=== PATIENT | male | born 1975 | race Caucasian/White ===

== ENCOUNTER 2017-11-18 04:30 | Emergency (ER) | payer MEDICAID ==
[2017-11-18 05:29] LABS: ADD MAN DIFF? NO
[2017-11-18 05:45] LABS: BASOPHILS % 0.5 % (0.0-2.0); EOSINOPHILS # 0.4 10^3/ul (0.0-0.5); HEMATOCRIT 43.4 % (42.0-52.0); HEMOGLOBIN 14.9 g/dl (14.0-18.0); LYMPHOCYTES # 2.2 10^3/ul (0.8-2.9); LYMPHOCYTES % 25.7 % (15.0-51.0); MEAN CORPUSCULAR HEMOGLOBIN 30.3 pg (29.0-33.0); MEAN CORPUSCULAR HGB CONC 34.3 g/dl (32.0-37.0); MEAN CORPUSCULAR VOLUME 88.4 fl (82.0-101.0); MEAN PLATELET VOLUME 9.9 fl (7.4-10.4); MONOCYTE # 0.7 10^3/ul (0.3-0.9); MONOCYTES % 7.9 % (0.0-11.0); NEUTROPHIL # 5.2 10^3/ul (1.6-7.5); NEUTROPHILS % 60.3 % (39.0-77.0); PLATELET COUNT 202 10^3/UL (140-415); RED BLOOD COUNT 4.91 10^6/ul (4.70-6.10); RED CELL DISTRIBUTION WIDTH 13.2 % (11.5-14.5)
[2017-11-18 05:45] LABS: WHITE BLOOD COUNT 8.5 10^3/ul (4.8-10.8)
[2017-11-18 05:56] LABS: ALANINE AMINOTRANSFERASE 135 IU/L (13-69); ALBUMIN 4.2 g/dl (3.3-4.9); ALBUMIN/GLOBULIN RATIO 1.05; ALKALINE PHOSPHATASE 195 IU/L (42-121); ANION GAP 12 (8-16); ASPARTATE AMINO TRANSFERASE 76 IU/L (15-46); BILIRUBIN,INDIRECT 0.2 mg/dl (0-1.1); BILIRUBIN,TOTAL 0.2 mg/dl (0.2-1.3); BLOOD UREA NITROGEN 8 mg/dl (7-20); CALCIUM 8.7 mg/dl (8.4-10.2); CARBON DIOXIDE 25 mmol/L (21-31); CHLORIDE 108 mmol/L (97-110); CREATININE 0.64 mg/dl (0.61-1.24); GLUCOSE 147 mg/dl (70-220); POTASSIUM 4.1 mmol/L (3.5-5.1); SODIUM 141 mmol/L (135-144); TOTAL PROTEIN 8.2 g/dl (6.1-8.1)
[2017-11-18 06:08] LABS: B-TYPE NATRIURETIC PEPTIDE 23 PG/ML (0-125)
[2017-11-18 06:09] LABS: TROPONIN-I < 0.012 ng/ml (0.000-0.120)
[2017-11-18] MEDS: BELLADONNA/PHENOBARBITAL TAB PO (06:34)
[2017-11-18] MEDS: KETOROLAC 15 MG INJ IV (06:34)
[2017-11-18] MEDS: LIDOCAINE/MYLANTA 40 ML BTL PO (06:34)
[2017-11-18] MEDS: ONDANSETRON 4 MG INJ IV (06:34)
[2017-11-18] MEDS: LORAZEPAM 0.5 MG TAB PO (06:34)
[2017-11-18] MEDS: FAMOTIDINE 20 MG TAB PO (06:34)
[2017-11-18] MEDS: SOD CHLORIDE 0.9% 1,000 ML IV (06:35)
== END 2017-11-18 08:00 | disposition home or self-care (01) ==
LOC: E/R 04:30
DX: K29.20 Alcoholic gastritis without bleeding (principal); R74.0 Nonspecific elevation of levels of transaminase and lactic acid dehydrogenase [LDH]
CPT/HCPCS: 36415; 71045; 80053; 83880; 84484; 85025; 93005; 96374; 96375; 99285-25

== ENCOUNTER 2018-06-16 10:09 | Observation (INO) | payer MEDICAID ==
[2018-06-16 12:07] LABS: ADD MAN DIFF? NO
[2018-06-16] MEDS: KETOROLAC 30 MG INJ IV (12:08)
[2018-06-16 12:16] LABS: BASOPHIL # 0.1 10^3/ul (0.0-0.1); BASOPHILS % 0.6 % (0.0-2.0); EOSINOPHILS # 0.3 10^3/ul (0.0-0.5); EOSINOPHILS % 3.4 % (0.0-7.0); HEMOGLOBIN 15.7 g/dl (14.0-18.0); LYMPHOCYTES # 2.6 10^3/ul (0.8-2.9); LYMPHOCYTES % 32.2 % (15.0-51.0); MEAN CORPUSCULAR HEMOGLOBIN 29.8 pg (29.0-33.0); MEAN CORPUSCULAR HGB CONC 33.4 g/dl (32.0-37.0); MEAN CORPUSCULAR VOLUME 89.2 fl (82.0-101.0); MEAN PLATELET VOLUME 9.6 fl (7.4-10.4); MONOCYTE # 0.6 10^3/ul (0.3-0.9); MONOCYTES % 7.7 % (0.0-11.0); NEUTROPHIL # 4.4 10^3/ul (1.6-7.5); NEUTROPHILS % 55.8 % (39.0-77.0); PLATELET COUNT 216 10^3/UL (140-415); RED BLOOD COUNT 5.27 10^6/ul (4.70-6.10); RED CELL DISTRIBUTION WIDTH 13.3 % (11.5-14.5)
[2018-06-16 12:16] LABS: WHITE BLOOD COUNT 7.9 10^3/ul (4.8-10.8)
[2018-06-16 12:37] LABS: ANION GAP 13 (5-13); BLOOD UREA NITROGEN 12 mg/dl (7-20); CARBON DIOXIDE 27 mmol/L (21-31); CHLORIDE 102 mmol/L (97-110); Estimated GFR > 60 mL/min (>60); GLUCOSE 95 mg/dl (70-220); POTASSIUM 4.2 mmol/L (3.5-5.1); SODIUM 142 mmol/L (135-144)
[2018-06-16 12:46] LABS: D-DIMER 371.87 ng/ml (<460)
[2018-06-16 12:50] LABS: TROPONIN-I < 0.012 ng/ml (0.000-0.120)
[2018-06-16] MEDS: NITROGLYCERIN 2% 1 GM OINT PKT TD (14:21)
[2018-06-16] MEDS: ASPIRIN 81 MG TAB PO (14:21)
[2018-06-16] MEDS: PIPER-TAZO 3.375 GM IV (PMX) 100 ML IVPB (14:53)
[2018-06-16] MEDS: VANCOMYCIN 1 GM (PMX) 250 ML IVPB (15:29)
[2018-06-16] MEDS ORDERED: MAGNESIUM HYDROXIDE 30ML CUP PO (16:00)
[2018-06-16] MEDS ORDERED: ALBUTEROL/IPRATROPIUM (NEB) 3 ML AMP HHN (16:00)
[2018-06-16] MEDS ORDERED: ONDANSETRON 4 MG INJ IV (16:00)
[2018-06-16] MEDS ORDERED: HYDROCODONE/APAP (5/325) TAB PO (16:00)
[2018-06-16] MEDS ORDERED: DOCUSATE SODIUM 100 MG CAP PO (16:00)
[2018-06-16] MEDS ORDERED: hydrALAzine 20 MG INJ IV (16:00)
[2018-06-16] MEDS ORDERED: LORAZEPAM 2 MG INJ IV (16:00)
[2018-06-16] MEDS ORDERED: NITROGLYCERIN (SL) 0.4 MG TAB SL (16:00)
[2018-06-16] MEDS ORDERED: ACETAMINOPHEN 325 MG TAB PO (16:00)
[2018-06-16] MEDS ORDERED: NACL 0.9% 3 ML SYG IV (16:00)
[2018-06-16] MEDS ORDERED: morphine SULFATE/PF (2 MG/2 ML) SYG IV (16:00)
[2018-06-16] MEDS: SOD CHLORIDE 0.45% 1,000 ML IV (17:08)
[2018-06-16 17:29] LABS: CREATINE KINASE 88 IU/L (23-200)
[2018-06-16 17:41] LABS: CK INDEX 1.9; CK-MB 1.63 ng/ml (0.0-2.4); TROPONIN-I < 0.012 ng/ml (0.000-0.120)
[2018-06-16 17:46] LABS: ETHANOL < 10.0 mg/dl (0-0)
[2018-06-16 17:47] LABS: FREE T4 (FREE THYROXINE) 1.38 ng/dl (0.64-1.79)
[2018-06-16 20:05] LABS: CREATINE KINASE 84 IU/L (23-200)
[2018-06-16 20:16] LABS: CK INDEX 1.6; CK-MB 1.33 ng/ml (0.0-2.4); TROPONIN-I < 0.012 ng/ml (0.000-0.120)
[2018-06-16] MEDS: HEPARIN 5,000 UNIT/1 ML VIAL SC (22:18)
[2018-06-17 01:09] LABS: CREATINE KINASE 83 IU/L (23-200)
[2018-06-17 01:22] LABS: CK INDEX 1.8; CK-MB 1.49 ng/ml (0.0-2.4); TROPONIN-I < 0.012 ng/ml (0.000-0.120)
[2018-06-17] MEDS: SOD CHLORIDE 0.45% 1,000 ML IV (03:18)
[2018-06-17 06:10] LABS: ADD MAN DIFF? NO
[2018-06-17 06:12] LABS: BASOPHILS % 0.4 % (0.0-2.0); EOSINOPHILS # 0.4 10^3/ul (0.0-0.5); HEMATOCRIT 41.8 % (42.0-52.0); HEMOGLOBIN 14.3 g/dl (14.0-18.0); LYMPHOCYTES # 2.3 10^3/ul (0.8-2.9); LYMPHOCYTES % 32.4 % (15.0-51.0); MEAN CORPUSCULAR HEMOGLOBIN 30.5 pg (29.0-33.0); MEAN CORPUSCULAR HGB CONC 34.2 g/dl (32.0-37.0); MEAN CORPUSCULAR VOLUME 89.1 fl (82.0-101.0); MEAN PLATELET VOLUME 10.1 fl (7.4-10.4); MONOCYTE # 0.5 10^3/ul (0.3-0.9); NEUTROPHIL # 3.9 10^3/ul (1.6-7.5); NEUTROPHILS % 54.8 % (39.0-77.0); PLATELET COUNT 178 10^3/UL (140-415); RED BLOOD COUNT 4.69 10^6/ul (4.70-6.10); RED CELL DISTRIBUTION WIDTH 13.7 % (11.5-14.5)
[2018-06-17 06:12] LABS: WHITE BLOOD COUNT 7.2 10^3/ul (4.8-10.8)
[2018-06-17 06:24] LABS: HEMOGLOBIN A1C 6.6 % (0-5.9)
[2018-06-17 06:34] LABS: CHOLESTEROL 162 mg/dl (100-200)
[2018-06-17 06:34] LABS: HDL CHOLESTEROL 32 mg/dl (27-67); LDL CHOLESTEROL,CALCULATED 103 mg/dl; TRIGLYCERIDES 136 mg/dl (0-149)
[2018-06-17 06:37] LABS: ANION GAP 11 (5-13); BLOOD UREA NITROGEN 15 mg/dl (7-20); CALCIUM 8.5 mg/dl (8.4-10.2); CARBON DIOXIDE 26 mmol/L (21-31); CHLORIDE 105 mmol/L (97-110); CREATININE 0.63 mg/dl (0.61-1.24); Estimated GFR > 60 mL/min (>60); GLUCOSE 123 mg/dl (70-220); MAGNESIUM 2.1 mg/dl (1.7-2.5); PHOSPHORUS 4.7 mg/dl (2.5-4.9); POTASSIUM 4.2 mmol/L (3.5-5.1); SODIUM 142 mmol/L (135-144)
[2018-06-17] MEDS: ASPIRIN (EC) 325 MG TAB PO (08:49)
[2018-06-17] MEDS: HEPARIN 5,000 UNIT/1 ML VIAL SC (08:54)
== END 2018-06-17 11:12 | disposition home or self-care (01) ==
LOC: E/R 10:09 → 6WM 14:47
DX: R07.9 Chest pain, unspecified (principal); F10.10 Alcohol abuse, uncomplicated; Z23 Encounter for immunization
CPT/HCPCS: 36415; 71045; 80048; 80061; 80307; 82550; 82553; 83036; 83735; 84100; 84439; 84443; 84484; 85025; 85378; 87040; 90686; 93005; 93306; 96374; 99285-25; G0378